=== PATIENT | female | born 1985 | race American Indian/Alaskan Native ===

== ENCOUNTER 2017-03-26 20:03 | Emergency (ER) | payer SELFPAY ==
[2017-03-26 22:31] LABS: Basophils % (Auto) 0.3 % (0.0-1.8); Eosinophils % (Auto) 0.9 % (0.0-4.3); Mean Corpuscular HGB Conc 29 % (30-34); Mean Corpuscular Volume 73 fl (79-97); Platelet Count 435 K/mm3 (140-440); Red Blood Count 4.03 M/mm3 (3.65-5.03)
[2017-03-26 22:32] LABS: Hematocrit 29.5 % (30.3-42.9); Hemoglobin 8.5 gm/dl (10.1-14.3); Mean Corpuscular Hemoglobin 21 pg (28-32); Red Cell Distribution Width 24.5 % (13.2-15.2)
[2017-03-27 00:06] LABS: Albumin 4.2 g/dL (3.9-5); Albumin/Globulin Ratio 1.2 %; BUN/Creatinine Ratio 15.55; Blood Urea Nitrogen 14 mg/dL (7-17); Calcium 9.7 mg/dL (8.4-10.2); Carbon Dioxide 15 mmol/L (22-30); Chloride 98.7 mmol/L (98-107); Glucose 431 mg/dL (65-100); Lipase 13 units/L (13-60); Sodium 139 mmol/L (137-145); Total Protein 7.8 g/dL (6.3-8.2)
[2017-03-27 00:11] LABS: Alanine Aminotransferase 17 units/L (7-56); Alkaline Phosphatase 106 units/L (35-129); Anion Gap 31 mmol/L; Potassium 5.9 mmol/L (3.6-5.0)
[2017-03-27] MEDS ORDERED: ZOFRAN ONE (01:36)
[2017-03-27] MEDS ORDERED: MORPHINE ONE (01:37)
[2017-03-27] MEDS ORDERED: ZOFRAN IM ONE ×2 (01:41→01:43)
[2017-03-27] MEDS ORDERED: MORPHINE IM ONE ×3 (01:41→06:40)
[2017-03-27 02:22] LABS: Bilirubin,Urine NEG (Negative); Blood,Urine MOD (Negative); Ketones,Urine NEG (Negative); Leukocyte Esterase,Urine MOD (Negative); Mucus,Urine FEW /HPF; Nitrite,Urine NEG (Negative); Protein,Urine <15 mg/dL mg/dL (Negative); Urobilinogen,Urine < 2.0 mg/dL (<2.0)
[2017-03-27] MEDS ORDERED: D50W (25GM) Syringe IV ONE (05:39)
--- NOTE | 2017-03-27 06:32 | Emergency Department Report ---
ED Abdominal Pain HPI - General Chief Complaint: Abdominal Pain Stated Complaint: ABD/BACK PAIN Time Seen by Provider: 03/27/17 05:56 Source: patient Mode of arrival: Ambulatory Limitations: No Limitations - History of Present Illness Initial Comments: 31-year-old female here with history of gastroparesis he complains of abdominal pain nausea vomiting. Patient states she's been having abdominal pain for a week since she's been here. She is from [place] and is visiting her mother. States the pain is similar to her chest similar to her other gastroparesis flares. On my evaluation she was able to tolerate food. MD Complaint: abdominal pain -: Gradual, week(s) (1) Location: epigastric Radiation: none Migration to: no migration Severity: moderate Severity scale (0 -10): 8 Consistency: constant Improves With: nothing Worsens With: nothing Associated Symptoms: nausea, vomiting - Related Data Home Medications Medication Instructions Recorded Confirmed Last Taken Insulin Aspart [NovoLOG 100 4 units SUB-Q TID 07/21/13 11/29/13 10/23/13 UNITS/ML VIAL] Insulin Glargine,Hum.rec.anlog 20 units SUB-Q QHS 07/21/13 11/29/13 10/23/13 [Lantus Solostar] Mirtazapine [Remeron] 30 mg PO QHS 07/21/13 11/29/13 10/23/13 Previous Rx's Medication Instructions Recorded Last Taken Type Ondansetron [Zofran Odt] 8 mg PO TID PRN #7 tab.rapdis 10/15/13 10/23/13 Rx Ondansetron [Zofran Odt] 4 mg PO Q4HR PRN #10 tab.rapdis 03/27/17 Unknown Rx Promethazine [Phenergan TAB] 25 mg PO Q6HR PRN #14 tab 03/27/17 Unknown Rx Allergies Allergy/AdvReac Type Severity Reaction Status Date / Time No Known Allergies Allergy Verified 10/15/13 14:30 ED Review of Systems ROS: Stated complaint: ABD/BACK PAIN Other details as noted in HPI Comment: All other systems reviewed and negative Constitutional: denies: chills, fever Eyes: denies: eye pain, eye discharge, vision change ENT: denies: ear pain, throat pain Respiratory: denies: cough, shortness of breath, wheezing Cardiovascular: denies: chest pain, palpitations Endocrine: no symptoms reported Gastrointestinal: abdominal pain. denies: nausea, diarrhea Genitourinary: denies: urgency, dysuria, discharge Musculoskeletal: denies: back pain, joint swelling, arthralgia Skin: denies: rash, lesions Neurological: denies: headache, weakness, paresthesias Psychiatric: denies: anxiety, depression Hematological/Lymphatic: denies: easy bleeding, easy bruising ED Past Medical Hx - Past Medical History Hx Hypertension: No Hx Heart Attack/AMI: No Hx Congestive Heart Failure: No Hx Diabetes: Yes (type 1) Hx Deep Vein Thrombosis: No Hx Pulmonary Embolism: No Hx Liver Disease: No Hx Renal Disease: No Hx Sickle Cell Disease: No Hx Arthritis: No Hx Seizures: No Hx Kidney Stones: No Hx Asthma: No Hx COPD: No Hx Tuberculosis: No Hx Dementia: No Hx HIV: No Additional medical history: gastroparesis - Surgical History Hx Coronary Stent: No Hx Open Heart Surgery: No Hx Pacemaker: No Hx Internal Defibrillator: No Hx Cholecystectomy: No Hx Appendectomy: No Hx Breast Surgery: No Additional Surgical History: , PEG tube and removal, gastric pacemaker - Family History Family history: no significant - Social History Smoking Status: Never Smoker Substance Use Type: None - Medications Home Medications: Home Medications Medication Instructions Recorded Confirmed Last Taken Type Insulin Aspart [NovoLOG 100 4 units SUB-Q TID 07/21/13 11/29/13 10/23/13 History UNITS/ML VIAL] Insulin Glargine,Hum.rec.anlog 20 units SUB-Q QHS 07/21/13 11/29/13 10/23/13 History [Lantus Solostar] Mirtazapine [Remeron] 30 mg PO QHS 07/21/13 11/29/13 10/23/13 History Ondansetron [Zofran Odt] 8 mg PO TID PRN #7 tab.rapdis 10/15/13 11/29/13 Rx Ondansetron [Zofran Odt] 4 mg PO Q4HR PRN #10 tab.rapdis 03/27/17 Unknown Rx Promethazine [Phenergan TAB] 25 mg PO Q6HR PRN #14 tab 03/27/17 Unknown Rx ED Physical Exam - General Limitations: No Limitations General appearance: alert, in no apparent distress - Head Head exam: Present: atraumatic, normocephalic - Eye Eye exam: Present: normal appearance - ENT ENT exam: Present: mucous membranes moist - Neck Neck exam: Present: normal inspection - Respiratory Respiratory exam: Present: normal lung sounds bilaterally. Absent: respiratory distress - Cardiovascular Cardiovascular Exam: Present: regular rate, normal rhythm. Absent: systolic murmur, diastolic murmur, rubs, gallop - GI/Abdominal GI/Abdominal exam: Present: soft, normal bowel sounds - Extremities Exam Extremities exam: Present: normal inspection - Back Exam Back exam: Present: normal inspection - Neurological Exam Neurological exam: Present: alert, oriented X3 - Psychiatric Psychiatric exam: Present: normal affect, normal mood - Skin Skin exam: Present: warm, dry, intact, normal color. Absent: rash ED Course Vital Signs 03/26/17 03/27/17 03/27/17 20:44 02:12 02:57 Temperature 98.7 F 98.1 F Pulse Rate 72 118 H Respiratory 16 18 Rate Blood Pressure 144/80 127/89 Blood Pressure [Left] O2 Sat by Pulse 100 100 100 Oximetry 03/27/17 03/27/17 03/27/17 03:00 03:11 03:15 Temperature 98.2 F Pulse Rate 105 H Respiratory 18 Rate Blood Pressure 127/91 121/89 Blood Pressure 127/91 [Left] O2 Sat by Pulse 98 100 98 Oximetry 03/27/17 03/27/17 03/27/17 03:30 03:45 04:00 Temperature Pulse Rate Respiratory Rate Blood Pressure 119/85 120/82 121/86 Blood Pressure [Left] O2 Sat by Pulse Oximetry ED Medical Decision Making - Lab Data Result diagrams: 03/26/17 22:18 03/26/17 22:18 Laboratory Results - last 24 hr 03/26/17 03/26/17 03/26/17 22:18 22:18 22:18 WBC 10.0 RBC 4.03 Hgb 8.5 L Hct 29.5 L MCV 73 L MCH 21 L MCHC 29 L RDW 24.5 H Plt Count 435 Lymph % (Auto) 22.6 [place] % (Auto) 5.6 Eos % (Auto) 0.9 Baso % (Auto) 0.3 Lymph # 2.3 [place] # 0.6 Eos # 0.1 Baso # 0.0 Seg Neutrophils % 70.6 H Seg Neutrophils # 7.0 Sodium 139 Potassium 5.9 H Chloride 98.7 Carbon Dioxide 15 L Anion Gap 31 BUN 14 Creatinine 0.9 Estimated GFR > 60 BUN/Creatinine Ratio 15.55 Glucose 431 H POC Glucose Calcium 9.7 Total Bilirubin 0.40 AST 60 H ALT 17 Alkaline Phosphatase 106 Total Protein 7.8 Albumin 4.2 Albumin/Globulin Ratio 1.2 Lipase 13 HCG, Qual Negative Urine Color Urine Turbidity Urine pH Ur Specific [place] Urine Protein Urine Glucose (UA) Urine Ketones Urine Blood Urine Nitrite Urine Bilirubin Urine Urobilinogen Ur Leukocyte Esterase Urine WBC (Auto) Urine RBC (Auto) U Epithel Cells (Auto) Urine Mucus 03/26/17 03/27/17 Unknown 02:49 WBC RBC Hgb Hct MCV MCH MCHC RDW Plt Count Lymph % (Auto) [place] % (Auto) Eos % (Auto) Baso % (Auto) Lymph # [place] # Eos # Baso # Seg Neutrophils % Seg Neutrophils # Sodium Potassium Chloride Carbon Dioxide Anion Gap BUN Creatinine Estimated GFR BUN/Creatinine Ratio Glucose POC Glucose 280 H Calcium Total Bilirubin AST ALT Alkaline Phosphatase Total Protein Albumin Albumin/Globulin Ratio Lipase HCG, Qual Urine Color Straw Urine Turbidity Clear Urine pH 7.0 Ur Specific [place] 1.023 Urine Protein <15 mg/dl Urine Glucose (UA) >=500 Urine Ketones Neg Urine Blood Mod Urine Nitrite Neg Urine Bilirubin Neg Urine Urobilinogen < 2.0 Ur Leukocyte Esterase Mod Urine WBC (Auto) 3.0 Urine RBC (Auto) 2.0 U Epithel Cells (Auto) 12.0 Urine Mucus Few - Medical Decision Making Patient is a 31-year-old female here with diabetic gastroparesis who complains of abdominal pain. Patient was able to tolerate by mouth intake. Her labs are unremarkable. Her blood sugars down. Her potassium is slightly elevated but this is likely due to hemolysis. Plan to discharge her home with Zofran and Phenergan. She is presently on a flight today. 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 Portions of this chart were dictated with dictation software. There may be dictation errors contained within this note. Critical care attestation.: If time is entered above; I have spent that time in minutes in the direct care of this critically ill patient, excluding procedure time. ED Disposition Clinical Impression: Gastroparesis, Diabetes mellitus Disposition: DC-01 TO HOME OR SELFCARE Is pt being admited?: No Condition: Stable Instructions: Abdominal Pain (ED), Diabetes Mellitus Type 2 in Adults (ED) Prescriptions: Ondansetron [Zofran Odt] 4 mg PO Q4HR PRN #10 tab.rapdis PRN Reason: Nausea Promethazine [Phenergan TAB] 25 mg PO Q6HR PRN #14 tab PRN Reason: Nausea Referrals: PRIMARY CARE, [Primary Care Provider] - 3-5 Days
[2017-03-27 06:57] VITALS: BP 117/67
== END 2017-03-27 07:18 | disposition home or self-care (01) ==
LOC: ED 20:03
DX: E10.43 Type 1 diabetes mellitus with diabetic autonomic (poly)neuropathy (principal); E11.43 Type 2 diabetes mellitus with diabetic autonomic (poly)neuropathy; K31.84 Gastroparesis; Z79.4 Long term (current) use of insulin
CPT/HCPCS: 36415; 80053; 81001; 82962; 83690; 84703; 85025; 96372; 99283; J2270; J2405; J1815